=== PATIENT | female | born 1955 | race Caucasian/White ===

== ENCOUNTER 2018-10-02 15:03 | Inpatient (IN) ==
[2018-10-02 15:38] LABS: BASO# 0.06 X1000 (0.0-0.2); BASO% 0.6 % (0.0-0.8); EOS# 0.06 X1000 (0.0-0.7); EOS% 0.6 % (0.0-10.0); HEMATOCRIT 43.2 % (37.0-47.0); HEMOGLOBIN 14.9 g/dL (12.0-16.0); IMM GRAN# 0.03 X1000 (0.0-0.04); IMM GRAN% 0.3 % (0.0-0.5); LYMPH# 2.08 X1000 (1.2-3.4); LYMPH% 19.4 % (20.5-51.1); MCH 30.8 PG (27-31); MCHC 34.5 g/dL (33-37); MCV 89.3 FL (81-99); MONO# 0.44 X1000 (0.11-0.59); MONO% 4.1 % (1.7-9.3); NEUT# 8.07 X1000 (1.4-6.5); PLT 163 X1000 (130-400); RBC 4.84 XMIL (4.2-5.4); RDW 11.6 % (11.5-14.5); WBC 10.74 X1000 (4.8-10.8)
[2018-10-02] MEDS ORDERED: NS 1,000 ML IV ONE ×2 (16:09→17:50)
[2018-10-02] MEDS ORDERED: ZOFRAN IV ONE (16:09)
[2018-10-02 16:20] LABS: ALB/GLOB RATIO 1.3; ALBUMIN 4.5 g/dL (3.5-5.0); CALCIUM 10.1 mg/dL (8.8-10.2); CREATININE 2.4 mg/dL (0.5-0.9); POTASSIUM 4.2 mmol/L (3.5-5.1); TOTAL BILIRUBIN 0.51 mg/dL (0.20-1.00); TOTAL PROTEIN 8.1 g/dL (6.3-8.3)
[2018-10-02] MEDS ORDERED: HUMULIN R IV ONE ×2 (16:20→17:59)
--- NOTE | 2018-10-02 16:21 | PROVIDER DOCUMENTATION ---
This chart was entered by Jeannine Vogt Scribe, acting as scribe for Tanisha Baltazar CRNP. HPI-Abdominal Pain/GI Problem - General Chief Complaint: Nausea/Vomiting Stated Complaint: WEAKNESS/VOMITING Time Seen by Provider: 10/02/18 16:05 Source: patient, family (daughter) Allergies/Adverse Reactions: Patient Allergies Allergy/AdvReac Type Severity Reaction Status Date / Time No Known Allergies Allergy Verified 10/02/18 15:12 Home Medications: Home Medication List Medication Instructions Recorded Confirmed Last Taken Type ATORVAstatin [Lipitor] 20 mg PO QHS 08/15/16 08/18/16 08/17/16 16:00 History Amlodipine [Norvasc] 5 mg PO DAILY 08/15/16 08/18/16 08/18/16 10:00 History Canagliflozin [Invokana] 300 mg PO DAILY 08/15/16 08/18/16 08/17/16 15:00 History Glimepiride 4 mg PO DAILY 08/15/16 08/18/16 08/17/16 15:00 History Hydrocodone/Acetaminophen [Howard 1 each PO PRN PRN 08/15/16 08/18/16 08/16/16 21 :00 History 10-325 Tablet] Lisinopril/Hydrochlorothiazide 1 each PO DAILY 08/15/16 08/18/16 08/18/16 10:00 History [Lisinopril-Hctz 20-25 mg Tab] Metformin HCl [Fortamet] 1,000 mg PO BID 08/15/16 08/18/16 08/17/16 16:00 History PRAVAstatin [Pravachol] 40 mg PO DAILY 08/15/16 08/18/16 08/17/16 15:00 History Sitagliptin Phosphate [Januvia] 100 mg PO DAILY 08/15/16 08/18/16 08/17/16 16: 00 History Oxycodone HCl/Acetaminophen 1 each PO Q4-6H PRN PRN #40 tablet 08/18/16 Unknown Rx [Percocet 5-325 mg Tablet] - History of Present Illness-ABD Nature of Presenting Problems: 63 yof presents to the ed with daughter at bedside. pt c/o v/v for 3 days and sts "I can not hold anything down" pt is actively vomiting on exam. pt sts she is diabetic but has not been taking her PO meds and does not heck her BGL at home. on exam pt has FSBG rater 500. Abdominal Pain Onset Location: reports: generalized abdomen Pain Radiation: reports: no radiation Quality of Pain: reports: cramping Severity in ED: reports: moderate Onset/Duration: reports: 3 days ago Timing: reports: still present Activities at Onset: reports: light activity Modifying Factors: improves with: nothing. worse with: other (anything PO) Associated Symptoms: reports: nausea, vomiting. denies: back/neck pain, chest pain, diarrhea, fever/chills, shortness of breath Last BM: last night Dark Stools Present?: reports: none noticed Rectal Bleeding: reports: none # of Diarrhea Episodes: 0 Rectal Pain: reports: none # of Vomiting Episodes: 10 ([facility]) Emesis Description: reports: none Bruising or Bleeding Gums?: No Similar Symptoms Previously?: Yes Recently seen or treated by another doctor?: No Review of Systems - Adult - REVIEW OF SYSTEMS - ADULT ROS:: daughter spoke for mother while mother was vomiting but pt then would answer for herself Constitutional: denies: chills, fever Eyes: reports: no symptoms reported Ears, Nose, Mouth & Throat: reports: no symptoms reported Cardiovascular: denies: chest pain, palpitations Respiratory: denies: cough, shortness of breath, wheezing Gastrointestinal: reports: see HPI, abdominal pain, nausea, poor appetite, vomiting. denies: hematemesis, diarrhea Genitourinary: reports: no symptoms reported Musculoskeletal: denies: back pain, neck pain Integumentary: reports: no symptoms reported Neurological: denies: dizziness/vertigo, headache/migraines Psychiatric: reports: no symptoms reported Endocrine: reports: no symptoms reported Hematologic/Lymphatic: reports: no symptoms reported Allergic/Immunologic: reports: no symptoms reported All Other Systems: Reviewed and Negative Past History - Adult - PAST MEDICAL HISTORY-ADULT Review of Records: reports: Old Records Reviewed, Nursing Assessment Review, Medications Reviewed, Social history reviewed & non-contributory. Major Childhood Illnesses: reports: denies history, history unknown Cardiovascular: reports: HTN Respiratory: reports: denies history Gastrointestinal: reports: denies history Obstetrical/Gynecological: reports: denies history Genitourinary: reports: denies history Musculoskeletal: reports: denies history Hand Dominance: Right Handed Neurological: reports: denies history Psychiatric: reports: denies history Endocrine/Immune: reports: Diabetes Diabetes Type: Type 2 Diabetes controlled by:: PO Meds Other Conditions: reports: denies history - PRIOR SURGERIES/PROCEDURES Surgical/Procedure History: reports: orthopedic (extremity) - IMMUNIZATION STATUS Childhood Immunizations: See Nurse Assessment Flu Vaccine: See Nurse Assessment - FAMILY HISTORY Family History: reviewed, not pertinent - SOCIAL HISTORY Smoking: denies Substance Use: alcohol Alcohol Use Frequency: occasionally Number of drinks per typical drinking period:: 3-4 drinks Living Situation: family Physical Exam-General - PHYSICAL EXAM-ADULT Initial Vital Signs Reviewed: Yes - CONSTITUTIONAL General Appearance: alert, mild distress, obese - EYES Eyes: PERRL/EOMI, pale conjunctivae. negative: pink conjunctivae (dry) - HEAD, EARS, NOSE, MOUTH & THROAT HENMT: negative: moist mucous membranes (dry) - NECK Neck: normal inspection - RESPIRATORY Respiratory: chest non-tender, lungs clear, normal breath sounds - CARDIOVASCULAR Cardiovascular: normal peripheral pulses, tachycardia (102) - GASTROINTESTINAL (ABDOMEN) Abdominal Exam: soft, tenderness, other (nausea and vomiting on exam). negative : distended, rigid, rebound - LYMPHATIC Lymphatic: no adenopathy - MUSCULOSKELETAL Back Exam: normal inspection Extremity: normal inspection, normal capillary refill, pelvis stable - SKIN Integumentary: warm/dry, pallor - NEUROLOGIC Neurologic: grossly normal - PSYCHIATRIC Psych/Mental Status: normal mood/affect, normal thought content, normal thought process, oriented x 3 Progress - PLAN OF CARE/RESULTS Progress/Plan/Lab Results: Vital Signs - 8 hr 10/02/18 15:09 Temperature 97.8 F Pulse Rate 102 H Respiratory Rate 18 Blood Pressure 142/71 O2 Sat by Pulse Oximetry 100 10/02/18 15:16 Influenza Screen - Final Nasopharyngeal Laboratory Results - last 24 hr 10/02/18 15:14 WBC 10.74 RBC 4.84 Hgb 14.9 Hct 43.2 MCV 89.3 MCH 30.8 MCHC 34.5 RDW Std Deviation 11.6 Plt Count 163 MPV Not Reportable Immature Gran % (Auto) 0.3 Neut % (Auto) 75.0 Lymph % (Auto) 19.4 L [place] % (Auto) 4.1 Eos % (Auto) 0.6 Baso % (Auto) 0.6 Immature Gran # (Auto) 0.03 Neut # (Auto) 8.07 H Lymph # (Auto) 2.08 [place] # (Auto) 0.44 Eos # (Auto) 0.06 Baso # (Auto) 0.06 Orders Category Date Time Status Saline Loc DIRECTED Care 10/02/18 15:12 Active NPO Diet 10/02/18 15:12 Active AMYLASE [CHEM] Stat Lab 10/02/18 15:14 Received CBC WITH ELECTRONIC DIFF [HEME] Stat Lab 10/02/18 15:14 Completed COMPREHENSIVE METABOLIC PANEL [CHEM] Stat Lab 10/02/18 15:14 Received Flu Swab [INFLUENZA SCREEN A/B] Stat Lab 10/02/18 15:16 Completed LIPASE [CHEM] Stat Lab 10/02/18 15:14 Received URINALYSIS W/POSS RFLX CULT [URINALYSIS] Stat Lab 10/02/18 15:12 Uncollected Corrected Sodium of 143 for hyperglycemia. Laboratory Tests 10/02/18 10/02/18 10/02/18 15:14 15:14 15:14 WBC 10.74 RBC 4.84 Hgb 14.9 Hct 43.2 MCV 89.3 MCH 30.8 MCHC 34.5 RDW Std Deviation 11.6 Plt Count 163 MPV Not Reportable Immature Gran % (Auto) 0.3 Neut % (Auto) 75.0 Lymph % (Auto) 19.4 L [place] % (Auto) 4.1 Eos % (Auto) 0.6 Baso % (Auto) 0.6 Immature Gran # (Auto) 0.03 Neut # (Auto) 8.07 H Lymph # (Auto) 2.08 [place] # (Auto) 0.44 Eos # (Auto) 0.06 Baso # (Auto) 0.06 Specimen Type Sample Site pH pCO2 pO2 HCO3 Base Excess Oxyhemoglobin ABG O2 Sat (Calculated) ABG O2 Saturation ABG Carboxyhemoglobin ABG Methemoglobin Giovanny Test A-a O2 Difference Total Hemoglobin Lactate Liter Flow Blood Gas Modality FiO2 % Sodium 128 L Potassium 4.2 Chloride 84 L Carbon Dioxide 21 L Anion Gap 23 BUN 52 H Creatinine 2.4 H Estimated GFR/1.73 m2 20 BUN/Creatinine Ratio 22 Glucose 711 H* Calculated Osmolality 305 Calcium 10.1 Total Bilirubin 0.51 AST 9 L ALT 9 L Alkaline Phosphatase 103 Total Protein 8.1 Albumin 4.5 Globulin 3.6 Albumin/Globulin Ratio 1.3 Amylase 41 Lipase 94 H Acetone Level SMALL A 10/02/18 16:30 WBC RBC Hgb Hct MCV MCH MCHC RDW Std Deviation Plt Count MPV Immature Gran % (Auto) Neut % (Auto) Lymph % (Auto) [place] % (Auto) Eos % (Auto) Baso % (Auto) Immature Gran # (Auto) Neut # (Auto) Lymph # (Auto) [place] # (Auto) Eos # (Auto) Baso # (Auto) Specimen Type ARTERIAL Sample Site R BRACHIAL pH 7.36 pCO2 35 pO2 80 HCO3 21.0 Base Excess -4.9 L Oxyhemoglobin 94.5 L ABG O2 Sat (Calculated) 19.7 ABG O2 Saturation 97.7 ABG Carboxyhemoglobin 2.00 ABG Methemoglobin 1.3 Giovanny Test NO A-a O2 Difference 26.0 Total Hemoglobin 14.8 Lactate 1.90 Liter Flow 0.0 Blood Gas Modality ROOM AIR FiO2 % 21.0 Sodium Potassium Chloride Carbon Dioxide Anion Gap BUN Creatinine Estimated GFR/1.73 m2 BUN/Creatinine Ratio Glucose Calculated Osmolality Calcium Total Bilirubin AST ALT Alkaline Phosphatase Total Protein Albumin Globulin Albumin/Globulin Ratio Amylase Lipase Acetone Level Discussed results and plan of care with patient. Patient agrees with plan and verbalizes understanding. Result Diagrams: 10/02/18 15:14 10/02/18 15:14 - REASSESSMENT Reassessment #1 Time Reassessed: 16:20 (BGL 711 and provider is aware) Status: unchanged Reassessment #2 Time Reassessed: 17:48 (nausea improved) Status: improving - CONSULTS/PCP/HOSPITALIST Notification #1 *Consult/PCP/Hospitalist*: Purnima for Dr. Bansal Time Discussed: 18:09 Reason/Comments: Admission Consult Disposition: Will see in ED, Admit Departure - Departure Date of Disposition Decision: 10/02/18 Time of Disposition Decision: 18:01 DIAGNOSIS: Renal insufficiency, Dehydration, Elevated lipase DKA (diabetic ketoacidoses) Qualifiers: Diabetes mellitus type: other specified (including TANYA) Diabetes mellitus complication detail: without coma Qualified Code(s): E13.10 - Other specified diabetes mellitus with ketoacidosis without coma Disposition: ADMITTED INPATIENT 09 Certified Medical Emergency: Emergent Condition: Stable Additional Freetext Instructions: ED Follow Up Instructions: You have been treated by a care provider in the Emergency Department. These instructions are being provided to you so you can have an understanding of how to care for yourself upon discharge. Upon discharge from the Emergency Department, you are responsible for making arrangements for follow-up care by a physician of your choice. Take all prescribed medications as directed. Return to the Emergency Department immediately for any new or worsening symptoms. You may call the Physician Referral phone number at [phone] to obtain a list of Physicians who are taking new patients. Referrals and Follow-Ups: Chava Ruiz MD [Primary Care Provider] - - Critical Care Note This patient required my direct & personal management of CC.: Yes Total Time (mins): 36 Critical Care Statement: This patient required my direct personal management to treat or rule out processes, the absence of which, could potentiallly result in sudden, clinically significant life or limb threatening deterioration. Attestation - Physician/ ROBIN Attestation Patient care was provided by Advanced Practice Provider:: Yes Advanced Practice Provider:: Tanisha Baltazar Advanced Practice Provider documentation review:: The Mid-level provider documentation, treatment plan and medical decision making was reviewed by the physician who agrees with all treatment and medical decision making by the MLP. The physician spent face to face time with patient:: No Advanced Practice Provider documentation review:: Supervising physician onsite and consulted in the evaluation and care of this patient. The physician did not have a face to face encounter with the patient. This chart was documented by the indicated scribe, (Jeannine Vogt Scribe) and accurately reflects the services I performed and decisions made by me, Tanisha Baltazar CRNP, as attested by the provider's signature.
[2018-10-02 16:38] LABS: ALLEN TEST NO; BE -4.9 mmoll (-3.0-3.0); BLOOD TYPE ARTERIAL; METHB 1.3 % (0.0-1.5); O2(CT) 19.7 mL/dL (15.0-23.0); O2HB 94.5 % (95.0-99.0); PCO2(98.6) 35 mmHg (35-45); PO2(98.6) 80 mmHg (60-100); SAMPLE BLOOD; SAO2 97.7 % (95.0-100.0); THB 14.8 g/dL (11.5-17.4); pH(98.6) 7.36 (7.35-7.45)
[2018-10-02 16:39] LABS: MODALITY ROOM AIR
--- NOTE | 2018-10-02 18:06 | Diag Imaging Result Doc PS360 ---
US GB < RUQ (LIMITED) - 10/02/2018 INDICATION: N/V TECHNIQUE: COMPARISON: None FINDINGS: The pancreas is obscured by bowel gas. There is significant fatty change of the liver. The gallbladder and right kidney are normal. Common bile duct is normal. Aorta, IVC, and main portal vein are patent. IMPRESSION: Significant hepatic steatosis. Pancreas is obscured. Electronically signed by Tony Encarnacion 10/02/2018 6:04 PM
[2018-10-02] MEDS ORDERED: SODIUM CHLORIDE 0.9% INJ SCH (18:38)
[2018-10-02] MEDS ORDERED: SODIUM BICARBONATE 8.4% 50 MEQ in D5W 250 ML IV PRN (18:39)
[2018-10-02] MEDS ORDERED: COMPAZINE IV PRN (18:39)
[2018-10-02] MEDS ORDERED: COMPAZINE PO PRN (18:39)
[2018-10-02] MEDS ORDERED: ZOFRAN PO PRN (18:39)
[2018-10-02] MEDS ORDERED: D50W SYRINGE IV PRN (18:39)
[2018-10-02] MEDS ORDERED: POTASSIUM CHLORIDE 20% LIQUID PO PRN (18:39)
[2018-10-02] MEDS ORDERED: ZOFRAN IV PRN (18:39)
[2018-10-02] MEDS ORDERED: POTASSIUM CHLORIDE 40 MEQ/SWI 40 MEQ/100 ML IVPB IV PRN (18:39)
[2018-10-02] MEDS ORDERED: POTASSIUM CHLORIDE 20 MEQ/SWI 20 MEQ/100 ML IVPB IV PRN (18:39)
[2018-10-02] MEDS ORDERED: SODIUM PHOSPHATE 30 MMOL in D5W 250 ML IV PRN (18:39)
[2018-10-02] MEDS ORDERED: MAGNESIUM SULFATE 2 GM/S.W.I. 2 GM/50 ML IVPB IV PRN (18:39)
[2018-10-02] MEDS ORDERED: SODIUM BICARBONATE 8.4% 100 MEQ in D5W 500 ML IV PRN (18:39)
[2018-10-02] MEDS: PROTONIX IV SCH (18:55)
[2018-10-02] MEDS: NS 1,000 ML IV SCH ×4 (19:00→22:29)
[2018-10-02] MEDS: HUMULIN R 100 UNIT in NS 100 ML IV SCH ×2 (19:05→20:17)
[2018-10-02 19:14] LABS: URINE SOURCE CLEAN CATCH
[2018-10-02 19:17] LABS: BILIRUBIN URINE NEGATIVE (NEGATIVE); BLOOD URINE NEGATIVE (NEGATIVE); COLOR YELLOW; GLUCOSE URINE >1000 mg/dL (NEGATIVE); KETONE URINE 20 mg/dL (NEGATIVE); LEUKOCYTES URINE MODERATE (NEGATIVE); NITRITE URINE NEGATIVE (NEGATIVE); PROTEIN URINE NEGATIVE (NEGATIVE); SP GRAVITY URINE 1.016; TURBIDITY URINE HAZY (CLEAR); UROBILINOGEN URINE NORMAL (NORMAL)
[2018-10-02 19:20] LABS: ALLEN TEST YES; BLOOD TYPE ARTERIAL; HCO3-(ACT) 20.2 mmoll (20.0-26.0); O2(CT) 15.9 mL/dL (15.0-23.0); O2HB 93.5 % (95.0-99.0); PCO2(98.6) 33 mmHg (35-45); PO2(98.6) 69 mmHg (60-100); SAMPLE BLOOD; SAO2 96.5 % (95.0-100.0); THB 12.1 g/dL (11.5-17.4); pH(98.6) 7.36 (7.35-7.45)
[2018-10-02 19:20] LABS: UR EPITHELIAL CELLS <10 /HPF (<10); URINE BACTERIA NEGATIVE /HPF; URINE WBC TNTC /HPF (<10)
[2018-10-02 19:21] LABS: MODALITY ROOM AIR
[2018-10-02 19:25] LABS: URINE YEAST NONE SEEN
[2018-10-02 19:29] LABS: UR AMPHETAMINES QUAL NONE DETECTED (NONE DETECT); UR BARBITUATES QUAL NONE DETECTED (NONE DETECT); UR BENZODIAZEPIN QUAL NONE DETECTED (NONE DETECT); UR CANNABINOIDS QUAL NONE DETECTED (NONE DETECT); UR COCAINE QUAL NONE DETECTED (NONE DETECT); UR METHADONE QUAL NONE DETECTED (NONE DETECT); UR OPIATES QUAL NONE DETECTED (NONE DETECT); UR OXYCODONE QUAL NONE DETECTED (NONE DETECT); UR PCP QUAL NONE DETECTED (NONE DETECT)
--- NOTE | 2018-10-02 20:10 | HISTORY AND PHYSICAL ---
PRIMARY CARE PROVIDER: Dr. Robinson Ruiz. CHIEF COMPLAINT: Nausea, vomiting, weakness and chills HISTORY OF PRESENT ILLNESS: Ms. Leonie Tillman is a 63-year-old female with a medical history of diabetes mellitus type 2 without insulin (just oral medications), hypertension, and hyperlipidemia. She also has a history of pancreatitis 15 years ago. She presents with complaints of vomiting over the last 3 days, but for at least a week she has had nausea, weakness and chills without fever. She does not have abdominal pain, but she has had pressure. Denies diarrhea. Has been around family members that have had a viral gastroenteritis. She does have complaints of excessive thirst and urination as well. Upon further workup, it revealed that she had a blood glucose level of 711 without acidosis. There is no leukocytosis. There is mild elevation of her lipase. Some mild tenderness in the left upper quadrant on palpation. She has some mild acute kidney injury with this. We will admit her to the ICU. She will get IV fluid hydration and insulin. PAST MEDICAL HISTORY: 1. Diabetes mellitus type 2. 2. Hypertension. 3. Hyperlipidemia. 4. Pancreatitis 15 years ago. PAST SURGICAL HISTORY: 1. Left wrist fracture repair. 2. Right ankle fracture repair 3. Lower back surgery SOCIAL HISTORY: Denies tobacco, alcohol, or illicit drug use. FAMILY HISTORY: Mother had diabetes and cystic fibrosis. Apparently her mother at age 42 of cystic fibrosis, but she denies that she has a trait for it. Father had coronary disease and required bypass surgery. He also had emphysema and hypertension. ALLERGIES: No known drug allergies. HOME MEDICATIONS: Are currently being reconciled by nursing staff. REVIEW OF SYSTEMS: A 14-point review of systems is completed and all negative except for those mentioned above in the HPI. PHYSICAL EXAMINATION VITAL SIGNS: Temperature 97.8, heart rate 85, respiratory rate 18, blood pressure 122/55, O2 saturation 98% on room air. She is 5 feet 8 inches tall and weighs 195 pounds. BMI is 29.6. GENERAL: Ms. Leonie Tillman is a 63-year-old female. She is in no acute distress. She is able to answer all questions appropriately. She is resting comfortably in bed. HEENT: Atraumatic, normocephalic. Pupils equal, round, and reactive to light. Extraocular movements intact. Mucous membranes are dry. NECK: Trachea midline. CARDIOVASCULAR: S1 and S2, regular rate and rhythm. No rubs, gallops, or murmurs. No lower extremity edema, +2 dorsalis and radial pulses. Negative JVD or carotid bruits. PULMONARY: Clear to auscultate. Bilateral breath sounds. No accessory muscle use or work of breathing noted. GI: Soft. Tender in the left upper quadrant. Hyperactive bowel sounds. Nondistended. EXTREMITIES: Moves all extremities equally. Full range of motion. NEUROLOGIC: A O x3, follows commands. Sensory is intact. SKIN: Warm, dry, intact. LABORATORY DATA: White blood cells 10,000, hemoglobin 14, hematocrit 43, platelet count 163. ABGs on room air: pH of 7.36, pCO2 of 35, pO2 of 80, bicarb of 21, base excess -4.9, saturation 94.5%. Lactate 1.9. Sodium 128, potassium 4.2, BUN 52, creatinine 2.4, glucose 711. Calcium 10, bilirubin 0.51, AST 9, ALT 9, albumin 4.5. Amylase 41, lipase 94, acetone small. IMAGING: Abdominal ultrasound: Significant hepatic steatosis. The pancreas is obscured by bowel gas. ASSESSMENT/PLAN: 1. Diabetes mellitus type 2 without acidosis and with hyperglycemia. This is a nonketotic, hyperosmolar hypoglycemic state. We are going to treat it with an insulin drip and IV fluid hydration. Will monitor overnight in the intensive care unit to watch for changes in neurologic status and risk of decreasing blood glucose levels too fast or increasing sodium levels too fast. 2. Acute kidney injury secondary to dehydration. Will repeat labs in the morning. She is getting IV fluid hydration. We will hold nephrotoxic medications. 3. Hypertension. Waiting for home medications to be verified. 4. Nausea and vomiting. Antiemetics as needed. 5. Deep venous thrombosis prophylaxis, sequential compression devices. 6. Hyperlipidemia. Will continue statin once it is available or reconciled by the nursing staff. Dictated by YOJANA Toure for Horace Bansal MD cc: YOJANA Toure MD Patient seen and evaluated by me. I agree with the assessment and plan of the YOJANA. Dr. Bansal. [facility]
[2018-10-02 20:32] LABS: MAGNESIUM 2.2 mg/dL (1.5-2.7); PHOSPHORUS 4.8 mg/dL (2.7-4.5)
[2018-10-02 20:35] LABS: HEMOGLOBIN A1C 13.1 % (4.8-6.0)
[2018-10-02 20:56] LABS: AMYLASE 56 U/L (20-200); CHOLESTEROL 139 mg/dL (0-200); CK PROFILE 36 U/L (24-173); HDL 43 mg/dL (45-65); LDL 44 mg/dL; LIPASE 80 U/L (13-60); TRIGLYCERIDES 261 mg/dL (35-135); VLDL 52 mg/dL
[2018-10-02] MEDS: POTASSIUM CHLORIDE 10% LIQUID PO PRN (20:57)
[2018-10-02 21:00] LABS: CALCIUM 8.7 mg/dL (8.8-10.2); CREATININE 1.8 mg/dL (0.5-0.9); MAGNESIUM 1.7 mg/dL (1.5-2.7); POTASSIUM 3.2 mmol/L (3.5-5.1)
[2018-10-02 21:01] LABS: ACETONE SERUM SMALL (NEGATIVE)
[2018-10-02] MEDS: D5 NS 1,000 ML IV SCH (22:39)
[2018-10-02 22:48] LABS: CALCIUM 8.7 mg/dL (8.8-10.2); CREATININE 1.7 mg/dL (0.5-0.9); MAGNESIUM 1.8 mg/dL (1.5-2.7); POTASSIUM 3.6 mmol/L (3.5-5.1)
[2018-10-03] MEDS: NS 1,000 ML IV SCH ×3 (01:30→11:16)
[2018-10-03] MEDS: POTASSIUM CHLORIDE 10% LIQUID PO PRN (01:42)
[2018-10-03 04:58] LABS: BASO# 0.05 X1000 (0.0-0.2); BASO% 0.5 % (0.0-0.8); EOS# 0.12 X1000 (0.0-0.7); EOS% 1.3 % (0.0-10.0); HEMATOCRIT 34.9 % (37.0-47.0); HEMOGLOBIN 11.8 g/dL (12.0-16.0); LYMPH# 2.86 X1000 (1.2-3.4); LYMPH% 30.6 % (20.5-51.1); MCH 30.7 PG (27-31); MCHC 33.8 g/dL (33-37); MCV 90.9 FL (81-99); MONO# 0.44 X1000 (0.11-0.59); MONO% 4.7 % (1.7-9.3); NEUT# 5.89 X1000 (1.4-6.5); NEUT% 62.9 % (42.2-75.2); PLT 111 X1000 (130-400); RBC 3.84 XMIL (4.2-5.4); RDW 11.4 % (11.5-14.5); WBC 9.36 X1000 (4.8-10.8)
[2018-10-03 05:08] LABS: ALLEN TEST YES; BE -2.9 mmoll (-3.0-3.0); BLOOD TYPE ARTERIAL; HCO3-(ACT) 22.7 mmoll (20.0-26.0); PCO2(98.6) 38 mmHg (35-45); PO2(98.6) 95 mmHg (60-100); SAMPLE BLOOD; pH(98.6) 7.37 (7.35-7.45)
[2018-10-03 05:12] LABS: MODALITY ROOM AIR
[2018-10-03 05:39] LABS: ALB/GLOB RATIO 1.4; ALBUMIN 3.4 g/dL (3.5-5.0); CALCIUM 8.3 mg/dL (8.8-10.2); CREATININE 1.3 mg/dL (0.5-0.9); MAGNESIUM 2.4 mg/dL (1.5-2.7); PHOSPHORUS 1.8 mg/dL (2.7-4.5); POTASSIUM 4.3 mmol/L (3.5-5.1); TOTAL BILIRUBIN 0.28 mg/dL (0.20-1.00); TOTAL PROTEIN 5.9 g/dL (6.3-8.3)
[2018-10-03] MEDS: D5 NS 1,000 ML IV SCH (07:19)
--- NOTE | 2018-10-03 07:26 | Diag Imaging Result Doc PS360 ---
EXAM: CHEST-PORTABLE 10/03/2018 HISTORY: follow up TECHNIQUE: AP portable at 0513 COMMENT: There is no evidence of acute cardiac or pulmonary disease. There are no previous studies available for comparison. IMPRESSION: No acute disease. Electronically signed by Joe Alfonso 10/03/2018 7:24 AM
[2018-10-03 12:26] LABS: CALCIUM 8.5 mg/dL (8.8-10.2); CREATININE 1.2 mg/dL (0.5-0.9); MAGNESIUM 2.2 mg/dL (1.5-2.7); PHOSPHORUS 1.6 mg/dL (2.7-4.5)
[2018-10-03 12:30] LABS: POTASSIUM 4.7 mmol/L (3.5-5.1)
--- NOTE | 2018-10-03 12:42 | PROGRESS NOTE ---
DATE: 10/03/2018 SUBJECTIVE: The patient resting comfortably on bed. She has family present in the room. OBJECTIVE: Vital signs: Temperature 99.2 degrees, pulse 70, respiratory rate 15, blood pressure 122/61, oxygen saturation is 100%. HEENT: Atraumatic, normocephalic. Cardiovascular system: S1, S2. Respiratory system: Has evidence of good air entry bilaterally. Abdomen: Soft, nontender. No masses felt. Extremities: No evidence of edema. Central nervous system: No obvious focal deficit noted. DIAGNOSTIC STUDIES: WBC 9.36, hematocrit is 34.9, with a platelet count of 111,000. Chemistry: Sodium is 138, potassium 4.3, chloride is 109, bicarbonate 22, anion gap is 7, BUN is 21, creatinine is 1.3. UA shows numerous WBCs. ASSESSMENT AND PLAN: 1. Uncontrolled diabetes. We will discontinue the insulin drip and start patient on sliding scale and monitor the patient's blood sugar levels. Cough follow up on hemoglobin A1c level. 2. Acute kidney injury. This is improving. Follow up on renal function and avoid nephrotoxic. 3. Hypertension. This seems to be controlled. We will resume patient's home antihypertensives cautiously. 4. Deep vein thrombosis (DVT) prophylaxis. SCD. 5. Gastrointestinal (GI) prophylaxis. PPI. cc: Horace Bansal MD
[2018-10-03] MEDS: HUMULIN R SUBQ SCH ×4 (13:09→22:17)
[2018-10-03] MEDS ORDERED: NS 1,000 ML IV SCH (13:15)
[2018-10-03 14:45] LABS: HEMOGLOBIN A1C 13.6 % (4.8-6.0)
[2018-10-03] MEDS: PROTONIX IV SCH (18:11)
[2018-10-04] MEDS: HUMULIN R SUBQ SCH ×7 (02:51→23:23)
[2018-10-04 04:50] LABS: BASO# 0.04 X1000 (0.0-0.2); BASO% 0.5 % (0.0-0.8); EOS# 0.11 X1000 (0.0-0.7); EOS% 1.3 % (0.0-10.0); HEMATOCRIT 34.5 % (37.0-47.0); HEMOGLOBIN 11.8 g/dL (12.0-16.0); IMM GRAN# 0.03 X1000 (0.0-0.04); IMM GRAN% 0.3 % (0.0-0.5); LYMPH% 36.9 % (20.5-51.1); MCH 31.5 PG (27-31); MCHC 34.2 g/dL (33-37); MONO% 5.8 % (1.7-9.3); NEUT# 4.79 X1000 (1.4-6.5); NEUT% 55.2 % (42.2-75.2); PLT 104 X1000 (130-400); RBC 3.75 XMIL (4.2-5.4); RDW 11.6 % (11.5-14.5); WBC 8.67 X1000 (4.8-10.8)
[2018-10-04 05:22] LABS: ALLEN TEST YES; BE -2.3 mmoll (-3.0-3.0); BLOOD TYPE ARTERIAL; HCO3-(ACT) 23.1 mmoll (20.0-26.0); METHB 0.8 % (0.0-1.5); O2(CT) 16.8 mL/dL (15.0-23.0); O2HB 97.4 % (95.0-99.0); PCO2(98.6) 25 mmHg (35-45); PO2(98.6) 139 mmHg (60-100); SAMPLE BLOOD; SAO2 99.8 % (95.0-100.0); THB 12.1 g/dL (11.5-17.4)
[2018-10-04 05:23] LABS: MODALITY ROOM AIR
[2018-10-04 05:47] LABS: AGAP 11; ALB/GLOB RATIO 1.3; ALBUMIN 3.2 g/dL (3.5-5.0); ALKALINE PHOSPHATASE 69 U/L (32-104); BUN 13 mg/dL (8-22); CALCIUM 8.7 mg/dL (8.8-10.2); CHLORIDE 109 mmol/L (98-107); COSMO 281; CREATININE 0.9 mg/dL (0.5-0.9); ESTIMATED GFR > 60; GLUCOSE 127 mg/dL (70-104); GOT 13 U/L (10-30); GPT 10 U/L (10-36); POTASSIUM 3.6 mmol/L (3.5-5.1); SODIUM 140 mmol/L (136-145); TCO2 20 mmol/L (25-35); TOTAL BILIRUBIN 0.25 mg/dL (0.20-1.00); TOTAL PROTEIN 5.7 g/dL (6.3-8.3)
[2018-10-04] MEDS ORDERED: INSULIN PEN NEEDLES ONE (12:11)
[2018-10-04] MEDS: BASAGLAR SUBQ SCH ×2 (12:48→21:24)
--- NOTE | 2018-10-04 15:33 | PROGRESS NOTE ---
DATE: 10/04/2018 SUBJECTIVE: Patient resting comfortable in bed. Not in any obvious distress. OBJECTIVE: Vital Signs: Vital signs are as follows: Temperature 99.0 degrees, pulse 73, respirations 14, blood pressure is 120/55, oxygen saturation is 98%. HEENT: Atraumatic, normocephalic. Cardiovascular system: S1, S2. Respiratory system: Has evidence of good air entry bilaterally. Abdomen: Soft, nontender. No masses felt. Extremities: No evidence of edema. Central nervous system: No obvious focal deficits noted. LABS: Labs are as follows: WBC is 8.63, hematocrit is 34.5, with a platelet count of 104. Sodium is 140, potassium 3.6, chloride 109, bicarbonate 20. BUN is 18, creatinine 0.9. ASSESSMENT AND PLAN: 1. Uncontrolled diabetes mellitus. Continue sliding scale insulin, as well as blood sugar monitoring. I have started long- acting agent, Lantus 20 units subcutaneous twice a day. This can be adjusted so we are able to achieve optimal blood sugar control. 2. Acute kidney injury, resolved. 3. Hypertension. Continue current antihypertensive regimen. 4. Deep vein thrombosis prophylaxis. Sequential compression devices. 5. Gastrointestinal prophylaxis. Proton pump inhibitor. cc: Horace Bansal MD
[2018-10-04] MEDS: NORVASC PO SCH (15:54)
[2018-10-04] MEDS: PROTONIX IV SCH (18:24)
[2018-10-05] MEDS: HUMULIN R SUBQ SCH ×7 (03:39→23:37)
[2018-10-05] MEDS: NORVASC PO SCH (09:55)
[2018-10-05] MEDS: BASAGLAR SUBQ SCH ×2 (09:55→20:51)
[2018-10-05 10:34] LABS: CALCIUM 8.2 mg/dL (8.8-10.2); CREATININE 1.1 mg/dL (0.5-0.9); POTASSIUM 3.8 mmol/L (3.5-5.1)
[2018-10-05] MEDS: JANUVIA PO SCH (16:19)
[2018-10-05] MEDS: NS 1,000 ML IV SCH (16:20)
[2018-10-05] MEDS: GLUCOPHAGE PO SCH (16:22)
--- NOTE | 2018-10-05 16:26 | PROGRESS NOTE ---
DATE: 10/05/2018 SUBJECTIVE: This morning Ms. Tillman refers to be doing a lot better. She denies any more complaint. No nausea, no vomiting. She has been tolerating her diet. OBJECTIVE: Vitals: Blood pressure is 156/52, pulse of 74, respiration is 19, temperature 98.1 degrees. General: Ms. Tillman 63-year-old female she is in bed, she is not in any cardiopulmonary distress. Mucosa is pink and moist. Anicteric. Acyanotic. Neck: Supple. Chest: Clear to auscultation. No crepitations, no rhonchi. Cardiovascular: Regular rate and rhythm. No murmurs, no rubs, no gallops. Abdomen: Soft, nontender. Bowel sounds present. Extremities: No pedal edema. ASSISTANT PROJECT MANAGER: Patient is awake, alert, oriented. There is no focal neurological deficit. LABORATORY DATA: WBC 8.67, hemoglobin is 11.8, platelet count of 104,000. Chemistry is also reviewed, sodium is 134, rest of chemistry is unremarkable except for bicarb of 19 and glucose of 336. ASSESSMENT: 1. Mild diabetic ketoacidosis on presentation improved. 2. Severe uncontrolled diabetes mellitus with presenting A1c of 13.6, patient is currently on insulin regimen and we have ordered her home metformin and also Januvia for a better glucose control. I have also advised the patient that for now I think she is going to be needing insulin for adequate glucose control at least for the short term and she needs to follow up consistently with her primary care doctor, Ms. Tillman refers that she was not very compliant with her medications because she had not gone back to see Dr. Ruiz due to some family issues with the , she also has lost insurance but since July she got Medicare and that she has an appointment to see Dr. Prieto on October 10. 3. Hypertension. Patient is currently on amlodipine. 4. Severe hepatic steatosis. Weight management and adequate glucose control has been advised and metformin has been initiated. 5. Mild hyponatremia secondary to the degree of the hyperglycemia. Will continue adequately addressing the glucose and hopefully the sodium will also readjust accordingly. 6. Acute kidney injury improving. Patient is on intravenous fluids Ms Tillman is a potential discharge tomorrow if the glucose is a lot better with the new changes. cc: MD MAHESH Lema
[2018-10-05] MEDS: PROTONIX IV SCH (18:42)
[2018-10-06] MEDS: HUMULIN R SUBQ SCH ×6 (03:51→21:52)
[2018-10-06] MEDS: NS 1,000 ML IV SCH ×3 (06:40→21:54)
[2018-10-06 08:33] LABS: CALCIUM 8.2 mg/dL (8.8-10.2); POTASSIUM 3.9 mmol/L (3.5-5.1)
[2018-10-06] MEDS: JANUVIA PO SCH (09:30)
[2018-10-06] MEDS: NORVASC PO SCH (09:31)
[2018-10-06] MEDS: BASAGLAR SUBQ SCH ×2 (09:31→21:53)
[2018-10-06] MEDS: GLUCOPHAGE PO SCH ×2 (09:31→17:54)
--- NOTE | 2018-10-06 15:08 | PROGRESS NOTE ---
DATE: 10/06/2018 SUBJECTIVE: The patient is resting comfortably in bed, not in any obvious distress. OBJECTIVE: Vital signs: Temperature is 98.1 degrees, pulse 79. Respiratory 16, blood pressure is 125/46. Oxygen saturation is 100 percent. HEENT: Atraumatic, normocephalic. Cardiovascular: S1, S2. Respiratory system: Has evidence of good air entry bilaterally. Abdomen: Soft, nontender. No masses felt. Extremities: No evidence of edema. Central nervous system: No obvious focal deficit noted. LABS: Sodium is 133, potassium 3.9, chloride is 105, bicarb 20, BUN is 13, creatinine is 1.0. ASSESSMENT AND PLAN: 1. Uncontrolled diabetes mellitus. Continue to adjust long-acting insulin. Also, maintain patient on sliding scale insulin and also blood sugar monitoring. 2. Acute kidney injury. Resolved. 3. Hypertension. Continue current antihypertensive regimen. 4. Deep vein thrombosis prophylaxis. Sequential compression devices. 5. Gastrointestinal prophylaxis. PPI. cc: Horace Bansal MD
[2018-10-06] MEDS: PROTONIX IV SCH (17:54)
[2018-10-07] MEDS: HUMULIN R SUBQ SCH ×4 (02:39→14:14)
[2018-10-07] MEDS: GLUCOPHAGE PO SCH (09:13)
[2018-10-07] MEDS: NORVASC PO SCH (09:13)
[2018-10-07] MEDS: BASAGLAR SUBQ SCH (09:13)
[2018-10-07] MEDS: JANUVIA PO SCH (09:14)
[2018-10-07] MEDS: NS 1,000 ML IV SCH (09:54)
[2018-10-07 15:58] VITALS: BP 143/70
[2018-10-07] MEDS ORDERED: INSULIN PEN NEEDLES ONE (17:23)
--- NOTE | 2018-10-08 04:03 | DISCHARGE SUMMARY ---
ADMISSION DATE: 10/02/2018 DISCHARGE DATE: 10/07/2018 PRINCIPAL DIAGNOSIS: Hyperosmolar non ketotic hyperglycemia. SECONDARY DIAGNOSES: 1. Type 2 diabetes mellitus. 2. Acute kidney injury. 3. Hypertension. 4. Hyperlipidemia. 5. History of pancreatitis. DISCHARGE MEDICATIONS: 1. Glimepiride 4 mg p.o. once a day. 2. Lantus insulin 20 units subcutaneous twice a day. 3. Amlodipine 2.5 mg p.o. daily. 4. Metformin 1 g p.o. twice a day. 5. Atorvastatin 20 mg p.o. daily. 6. Lisinopril/hydrochlorothiazide 20/25 1 p.o. daily. HOSPITAL COURSE: Ms. Leonie Tillman is a 63-year-old female with a history of type 2 diabetes mellitus, hypertension and hyperlipidemia. She does have a history of pancreatitis 15 years ago. She presents to the hospital because of vomiting for three days prior to admission. She also has nausea, weakness as well as chills without fever. When she presented to the hospital, blood sugar was as high as 711. There was also mild elevation in her lipase level. The patient was admitted to intensive care unit. She required intravenous fluids as well as intravenous insulin. We will either transition her from IV insulin to subcutaneous insulin, and then transfer her to the floor. Her blood sugars however improved. Last set of 5 blood sugar readings ranged between 244 and 150. At this time, the patient has done well. She is stable. She can now be discharged home. Her diet will be diabetic diet. Activity will be as tolerated. She will need to take her discharge medications as noted above. She will also need to follow up with her primary care physician as an outpatient in the next 1 to 2 weeks. cc: Horace Bansal MD
== END 2018-10-07 18:07 | disposition home or self-care (01) | DRG 638 ==
LOC: ED 15:03 → SUATTDRO 20:44 → ICU 20:44 → 3N 10-04 18:52
PROVIDERS: ATTEND Internal Medicine
CPT/HCPCS: 71010; 71045; 76705; 80048; 80053; 80061; 80101; 80301; 80307; 80324; 80345; 80346; 80353; 80358; 80361; 80365; 81001; 82009; 82150; 82550; 82805; 82948; 83036; 83690; 83735; 83992; 84100; 84484; 84703; 85025; 87088; 87275; 87276; 87804; 96361; 96374; 96375; 96376; 99285; 99291; A9270; C9113; G0431; G0434; G0479; G0480; J2405; J3475; J3480; J7030; J7042; S0164; XXXXX